=== PATIENT | female | born 1950 | race Caucasian/White ===

== ENCOUNTER 2017-09-26 18:18 | Emergency (ER) | payer OTHER ==
[~2017-09-26] VITALS: Ht 154.9 cm; Wt 70.3 kg
[~2017-09-26 18:18] MED LIST: DILANTIN30 MG; VASOTEC10 MG
== END 2017-09-26 21:57 | disposition home or self-care (01) ==
LOC: ER 18:18
DX: N39.0 Urinary tract infection, site not specified (principal); D69.3 Immune thrombocytopenic purpura

== ENCOUNTER 2017-11-06 15:44 | Outpatient (CLI) | payer OTHER | END 2017-11-06 16:17 | disposition home or self-care (01) | LOC: RAD 501 15:44 → RAD 15:44 | DX: M17.0 Bilateral primary osteoarthritis of knee (principal) ==

== ENCOUNTER → 2017-11-24 | Emergency (ER) | payer OTHER ==
[~2017-11-24] VITALS: Ht 152.4 cm; Wt 70.8 kg
== END | disposition home or self-care (01) ==
LOC: ER 13:58
DX: R06.02 Shortness of breath (principal); R51 Headache; M54.2 Cervicalgia

== ENCOUNTER 2018-02-18 15:12 | Outpatient (CLI) | payer OTHER | END 2018-02-18 15:19 | disposition home or self-care (01) | LOC: MAMO-SONO 15:12 | DX: Z12.31 Encounter for screening mammogram for malignant neoplasm of breast (principal); Z87.898 Personal history of other specified conditions; N60.11 Diffuse cystic mastopathy of right breast; N60.12 Diffuse cystic mastopathy of left breast ==

== ENCOUNTER 2018-06-06 17:12 | Emergency (ER) | payer OTHER ==
[~2018-06-06] VITALS: Ht 154.9 cm; Wt 74.8 kg
== END 2018-06-06 20:14 | disposition home or self-care (01) ==
LOC: ER 17:12
DX: R50.9 Fever, unspecified (principal); D69.49 Other primary thrombocytopenia; J11.1 Influenza due to unidentified influenza virus with other respiratory manifestations

== ENCOUNTER 2018-07-21 14:54 | Emergency (ER) | payer OTHER ==
[~2018-07-21] VITALS: Ht 154.9 cm; Wt 74.8 kg
== END 2018-07-21 15:34 | disposition home or self-care (01) ==
LOC: ER 14:54
DX: M75.52 Bursitis of left shoulder (principal)

== ENCOUNTER 2018-08-06 13:58 | Emergency (ER) | payer OTHER ==
[~2018-08-06] VITALS: Ht 154.9 cm; Wt 76.2 kg
[2018-08-06] MEDS ORDERED: BUTALB-ACETAMI1 EACH PO (17:59)
== END 2018-08-06 18:50 | disposition home or self-care (01) ==
LOC: ER 13:58
DX: R51 Headache (principal)

== ENCOUNTER 2018-11-10 16:18 | Emergency (ER) | payer OTHER ==
[~2018-11-10] VITALS: Ht 134.6 cm; Wt 74.8 kg
[~2018-11-10 16:18] MED LIST changes: +BUTALB-ACETAMI1 EACH PO
== END 2018-11-10 19:22 | disposition home or self-care (01) ==
LOC: ER 16:18
DX: M62.830 Muscle spasm of back (principal); M72.2 Plantar fascial fibromatosis; M25.571 Pain in right ankle and joints of right foot; M54.2 Cervicalgia

== ENCOUNTER 2018-12-07 14:18 | Emergency (ER) | payer OTHER ==
[~2018-12-07] VITALS: Ht 165.1 cm; Wt 74.8 kg
== END 2018-12-07 18:28 | disposition home or self-care (01) ==
LOC: ER 14:18
DX: M79.18 Myalgia, other site (principal); R10.32 Left lower quadrant pain

== ENCOUNTER 2019-02-17 15:40 | Outpatient (CLI) | payer OTHER | END 2019-02-17 16:30 | disposition home or self-care (01) | LOC: RAD 15:40 | DX: M77.31 Calcaneal spur, right foot (principal); M77.32 Calcaneal spur, left foot; J45.998 Other asthma ==

== ENCOUNTER 2019-04-12 14:17 | Emergency (ER) | payer OTHER ==
[~2019-04-12] VITALS: Ht 152.4 cm; Wt 74.8 kg
[2019-04-12] MEDS ORDERED: DILANTIN100 MG PO (15:15)
[2019-04-12] MEDS ORDERED: VASOTEC10 MG NGT (15:16)
[2019-04-12] MEDS ORDERED: MECLIZINE HCL25 MG PO (23:15)
== END 2019-04-12 23:10 | disposition home or self-care (01) ==
LOC: ER 14:17
DX: R42 Dizziness and giddiness (principal)

== ENCOUNTER 2019-06-10 13:32 | Emergency (ER) | payer OTHER ==
[~2019-06-10] VITALS: Ht 154.9 cm; Wt 76.7 kg
[~2019-06-10 13:32] MED LIST changes: +DILANTIN100 MG PO; +MECLIZINE HCL25 MG PO; +VASOTEC10 MG NGT
== END 2019-06-10 16:51 | disposition home or self-care (01) ==
LOC: ER 13:32
DX: K29.60 Other gastritis without bleeding (principal)

== ENCOUNTER 2019-08-18 15:59 | Emergency (ER) | payer OTHER ==
[~2019-08-18] VITALS: Ht 147.3 cm; Wt 77.1 kg
== END 2019-08-18 19:56 | disposition home or self-care (01) ==
LOC: ER 15:59
DX: R10.32 Left lower quadrant pain (principal); K63.89 Other specified diseases of intestine; D69.49 Other primary thrombocytopenia

== ENCOUNTER 2019-10-18 17:31 | Inpatient (IN) | payer OTHER ==
[~2019-10-18] VITALS: Ht 154.9 cm; Wt 77.1 kg
== END 2019-10-25 15:59 | disposition home or self-care (01) | DRG 813 ==
LOC: ER 17:31 → MEDJ 20:36 → SEC-K 20:36 → MEDJ 10-22 09:38 → MEDI 10-22 10:27
PROVIDERS: ADMIT Specialist
PROC: 30233R1 Transfusion of Nonautologous Platelets into Peripheral Vein, Percutaneous Approach (ICD-10-PCS; principal; 2019-10-18)
PROC: 8E0ZXY6 Isolation (ICD-10-PCS; 2019-10-18)
PROC: B245ZZZ Ultrasonography of Left Heart (ICD-10-PCS; 2019-10-19)
PROC: 4A033R1 Measurement of Arterial Saturation, Peripheral, Percutaneous Approach (ICD-10-PCS; 2019-10-19)
PROC: 3E0F7GC Introduction of Other Therapeutic Substance into Respiratory Tract, Via Natural or Artificial Opening (ICD-10-PCS; 2019-10-19)
PROC: 4A12X4Z Monitoring of Cardiac Electrical Activity, External Approach (ICD-10-PCS; 2019-10-19)
PROC: BW28ZZZ Computerized Tomography (CT Scan) of Head (ICD-10-PCS; 2019-10-19)
DX: D69.49 Other primary thrombocytopenia (principal); I25.3 Aneurysm of heart; M32.9 Systemic lupus erythematosus, unspecified; F20.9 Schizophrenia, unspecified; G40.909 Epilepsy, unspecified, not intractable, without status epilepticus; I48.91 Unspecified atrial fibrillation; I11.0 Hypertensive heart disease with heart failure; I50.9 Heart failure, unspecified; I05.0 Rheumatic mitral stenosis

== ENCOUNTER 2020-01-17 21:43 | Emergency (ER) | payer OTHER ==
[~2020-01-17] VITALS: Ht 152.4 cm; Wt 72.6 kg
[2020-01-17] MEDS ORDERED: METFORMIN (22:09)
== END 2020-01-18 05:16 | disposition home or self-care (01) ==
LOC: ER 21:43
DX: I48.0 Paroxysmal atrial fibrillation (principal); R06.02 Shortness of breath